=== PATIENT | female | born 1960 | race Caucasian/White ===

== ENCOUNTER → 2020-02-16 | Outpatient (CLI) | payer BC ==
[2020-02-17 17:07] LABS: HPV 16 Negative (Negative); HPV 18 Negative (Negative); HPV OTHER HR TYPES Negative (Negative)
== END | disposition home or self-care (01) ==
LOC: LAB 11:26 → LAB SHORT 11:26
PROVIDERS: Advanced Practice Midwife
DX: Z01.419 Encounter for gynecological examination (general) (routine) without abnormal findings (principal)
CPT/HCPCS: 87624; G0123

== ENCOUNTER 2020-11-19 09:02 | Day surgery (SDC) | payer BC ==
[~2020-11-19] VITALS: Ht 170.2 cm; Wt 60.7 kg
[~2020-11-19 09:02] MED LIST: TESTOSTERONE75 G1; THYR60 PO
[2020-11-19] MEDS ORDERED: WP THYROID PO (09:38)
== END 2020-11-19 10:29 | disposition home or self-care (01) ==
LOC: ORSCSDS 09:02
PROVIDERS: Internal Medicine Gastroenterology
PROC: 0DJD8ZZ Inspection of Lower Intestinal Tract, Via Natural or Artificial Opening Endoscopic (ICD-10-PCS; principal; 2020-11-19 10:15)
DX: Z12.11 Encounter for screening for malignant neoplasm of colon (principal); K57.30 Diverticulosis of large intestine without perforation or abscess without bleeding; K64.8 Other hemorrhoids; Z79.899 Other long term (current) drug therapy
CPT/HCPCS: J2704; J7120

== ENCOUNTER 2020-12-17 10:33 | Day surgery (SDC) | payer BC ==
[~2020-12-17] VITALS: Ht 170.2 cm; Wt 62.5 kg
[~2020-12-17 10:33] MED LIST changes: +WP THYROID PO
[2020-12-17] MEDS ORDERED: ESTROGEN/PROGESTERON (11:03)
--- NOTE | 2020-12-17 11:44 | NUR ---
12/17/20 1144 Bobbi Mcallister OK PER DR GOMEZ DESPITE CHILDHOOD ALLERGY TO AMPICILLIN. RX'S GIVEN TO IN PRE-OP.
== END 2020-12-17 15:30 | disposition home or self-care (01) ==
LOC: ORSCSDS 10:33
PROVIDERS: Podiatrist Foot & Ankle Surgery
PROC: 0QSR04Z Reposition Left Toe Phalanx with Internal Fixation Device, Open Approach (ICD-10-PCS; principal; 2020-12-17 11:45)
PROC: 0QSP04Z Reposition Left Metatarsal with Internal Fixation Device, Open Approach (ICD-10-PCS; principal; 2020-12-17 11:45)
PROC: 0SGL04Z Fusion of Left Tarsometatarsal Joint with Internal Fixation Device, Open Approach (ICD-10-PCS; principal; 2020-12-17 11:45)
PROC: 0SRQ0JZ Replacement of Left Toe Phalangeal Joint with Synthetic Substitute, Open Approach (ICD-10-PCS; principal; 2020-12-17 11:45)
DX: M20.12 Hallux valgus (acquired), left foot (principal); M77.42 Metatarsalgia, left foot; M20.42 Other hammer toe(s) (acquired), left foot; E03.9 Hypothyroidism, unspecified; Z79.899 Other long term (current) drug therapy
CPT/HCPCS: C1713; J0171; J0690; J2250; J2370; J2704; J3010; J7120

== ENCOUNTER → 2021-02-11 | Outpatient (CLI) | payer BC ==
[~2021-02-11] MED LIST changes: +ESTROGEN/PROGESTERON
[2021-02-12 15:11] LABS: HPV 16 Negative (Negative); HPV 18 Negative (Negative); HPV OTHER HR TYPES Negative (Negative)
== END ==
LOC: LAB SHORT 17:13 → LAB 17:13
PROVIDERS: Advanced Practice Midwife
DX: Z01.419 Encounter for gynecological examination (general) (routine) without abnormal findings (principal)
CPT/HCPCS: 87624; G0123

== ENCOUNTER → 2021-04-18 | Outpatient (CLI) | payer BC | LOC: LAB SHORT 10:40 → LAB 10:40 | DX: N39.0 Urinary tract infection, site not specified (principal) | CPT/HCPCS: 87077; 87086; 87186 ==

== ENCOUNTER 2021-04-26 05:02 | Day surgery (SDC) | payer BC | END 2021-04-26 23:41 | disposition home or self-care (01) | LOC: WOUND 05:02 | DX: L89.623 Pressure ulcer of left heel, stage 3 (principal); Z88.0 Allergy status to penicillin; E03.9 Hypothyroidism, unspecified | CPT/HCPCS: A9270; G0463 ==

== ENCOUNTER 2021-05-06 07:00 | Day surgery (SDC) | payer BC | END 2021-05-06 23:00 | disposition home or self-care (01) | LOC: WOUND 07:00 | DX: L89.623 Pressure ulcer of left heel, stage 3 (principal) | CPT/HCPCS: G0463 ==

== ENCOUNTER 2021-05-20 02:47 | Day surgery (SDC) | payer BC | END 2021-05-20 23:24 | disposition home or self-care (01) | LOC: WOUND 02:47 | DX: L89.623 Pressure ulcer of left heel, stage 3 (principal) | CPT/HCPCS: A9270; G0463 ==

== ENCOUNTER 2021-05-31 00:25 | Day surgery (SDC) | payer BC | END 2021-05-31 23:00 | disposition home or self-care (01) | LOC: WOUND 00:25 | DX: L89.623 Pressure ulcer of left heel, stage 3 (principal) | CPT/HCPCS: A9270; G0463 ==

== ENCOUNTER → 2021-09-10 | Outpatient (CLI) | payer BC | END | disposition home or self-care (01) | LOC: LAB SHORT 15:43 | DX: L82.1 Other seborrheic keratosis (principal) | CPT/HCPCS: 88305 ==

== ENCOUNTER → 2022-08-04 | Outpatient (CLI) | payer BC ==
[2022-08-06 14:10] LABS: HPV 16 Negative (Negative); HPV 18 Negative (Negative); HPV OTHER HR TYPES Negative (Negative)
== END | disposition home or self-care (01) ==
LOC: LAB SHORT 15:43 → LAB 15:43
PROVIDERS: Advanced Practice Midwife
DX: Z01.419 Encounter for gynecological examination (general) (routine) without abnormal findings (principal)
CPT/HCPCS: 87624; G0123

== ENCOUNTER → 2023-08-27 | Outpatient (CLI) | payer BC ==
[2023-08-28 16:11] LABS: HPV 16 Negative (Negative); HPV 18 Negative (Negative); HPV OTHER HR TYPES Negative (Negative)
== END | disposition home or self-care (01) ==
LOC: LAB SHORT 13:43 → LAB 13:43
PROVIDERS: Advanced Practice Midwife
DX: Z01.419 Encounter for gynecological examination (general) (routine) without abnormal findings (principal)
CPT/HCPCS: 87624; G0145